=== PATIENT | male | born 1975 | race Hispanic/Latino ===

== ENCOUNTER 2017-12-16 00:30 | Observation (INO) | payer OTHER ==
[2017-12-16] VITALS (7 sets, daily range): BP systolic 110–143; BP diastolic 71–91
[~2017-12-16] VITALS: Ht 182.9 cm; Wt 93.6 kg
[2017-12-16] MEDS ORDERED: ASPIRIN 81 MG CHEW TAB PO ONE (00:45)
[2017-12-16] MEDS ORDERED: PANTOPRAZOLE 40 MG 10ML VIAL IV STA (00:53)
[2017-12-16 00:57] LABS: BASOPHILS % 0.3 % (0.0-1.0); EOSINOPHILS # (AUTO) 0.1 (0.0-0.4); EOSINOPHILS % 0.8 % (0.0-6.0); HEMATOCRIT 45.7 % (38.2-49.6); HEMOGLOBIN 15.8 g/dL (14.0-18.0); LYMPHOCYTES # (AUTO) 3.3 (1.0-3.2); MEAN CORPUSCULAR HEMOGLOBIN 31.3 pg (28-32); MEAN CORPUSCULAR HGB CONC 34.6 g/dL (31-35); MEAN CORPUSCULAR VOLUME 90.5 fL (81-99); MONOCYTES # (AUTO) 0.7 (0.2-0.8); MONOCYTES % 8.2 % (4.4-11.3); NEUTROPHILS % 49.6 % (38.7-80.0); PLATELET COUNT 231 x10e3/uL (140-360); RED BLOOD COUNT 5.05 x10e6/uL (4.3-5.7); RED CELL DISTRIBUTION WIDTH 12.9 % (11.7-14.4)
[2017-12-16 01:00] LABS: AMPHETAMINES SCREEN,URINE NEGATIVE (NEGATIVE); BENZODIAZEPINES SCREEN,URINE NEGATIVE (NEGATIVE); PHENCYCLIDINE SCREEN,URINE NEGATIVE (NEGATIVE)
[2017-12-16 01:07] LABS: CLARITY,URINE CLEAR (CLEAR); COLOR,URINE YELLOW (YELLOW); LEUKOCYTE ESTERASE ,URINE NEGATIVE (NEGATIVE); NITRITE,URINE NEGATIVE (NEGATIVE); PROTEIN,URINE DIPSTICK NEGATIVE (NEGATIVE)
[2017-12-16 01:08] LABS: BILIRUBIN,URINE NEGATIVE (NEGATIVE); KETONES,URINE NEGATIVE (NEGATIVE); MUCUS,URINE FEW (RARE); RBC,URINE 0-5 /HPF (0-5); URINE UROBILINOGEN 4 mg/dL (0.2 - 1); WBC,URINE (MAN) 0-5 /HPF (0-5)
[2017-12-16 01:12] LABS: INR 0.91; PROTHROMBIN TIME 13.1 seconds (11.9-14.5)
[2017-12-16 01:13] LABS: PARTIAL THROMBOPLASTIN TIME 27.2 seconds (23.8-35.5)
[2017-12-16 01:21] LABS: ALANINE AMINOTRANSFERASE 44 IU/L (0-55); ALBUMIN 4.1 g/dL (3.5-5.0); ALBUMIN/GLOBULIN RATIO 1.3 (0.8-2.0); ALKALINE PHOSPHATASE 85 IU/L (40-150); BLOOD UREA NITROGEN 17 mg/dL (7-26); BUN/CREATININE RATIO 16 (6-25); CALCIUM 9.7 mg/dL (8.4-10.2); CARBON DIOXIDE 24 mmol/L (22-29); CHLORIDE 102 mmol/L (98-107); CREATINE KINASE 150 IU/L (30-200); CREATININE, SERUM 1.07 mg/dL (0.72-1.25); EST GLOMERULAR FILTRATION RATE > 60 ML/MIN (60-); GLUCOSE 118 mg/dL (74-118); SODIUM 139 mmol/L (136-145)
[2017-12-16 01:25] LABS: CREATINE KINASE MB < 1.00 ng/mL (0-4.3)
[2017-12-16 01:34] LABS: AMYLASE 34 U/L (25-125); LIPASE 16 U/L (8-78)
--- NOTE | 2017-12-16 01:34 | Diagnostic Imaging Report ---
CHEST SINGLE (PORTABLE), 12/16/2017 12:37 AM Technique: CHEST SINGLE (PORTABLE) Comparison: None available. Clinical history: \S\CHEST PAIN \[id number] \S\0107 \S\Y Findings: See Impression Impression: Limited by portable technique and soft tissue attenuation. 1. Prominent cardiac silhouette, accentuated by portable technique. 2. Hazy opacity over the peripheral left lower lung could be artifactual related to summation shadow and technique. Recommend follow-up upright PA and lateral. 3. No effusion or pneumothorax. Signed by: Dr Celia Ellis MD on 12/16/2017 1:30 AM
[2017-12-16] MEDS ORDERED: ONDANSETRON HCL INJ 2 MG/ML VIAL IV PRN (02:15)
[2017-12-16] MEDS ORDERED: MORPHINE SULFATE 2 MG/ML SYR IV PRN (02:15)
[2017-12-16] MEDS ORDERED: SODIUM CHLORIDE FLUSH 10 ML SYR INJ PRN (02:15)
[2017-12-16] MEDS: FAMOTIDINE 20 MG/2 ML VIAL IV SCH ×2 (02:25→15:18)
[2017-12-16] MEDS ORDERED: ASPIRIN 81 MG ENTERIC COATED PO SCH (09:00)
[2017-12-16 09:12] LABS: CREATINE KINASE MB 0.5 ng/mL (0-5.0)
--- NOTE | 2017-12-16 09:53 | History and Physical ---
PCP: Dr. Rossi Blanca. DAM WORKER: Dr. Asad Snider. CHIEF COMPLAINT: Chest pressure which woke the patient up. HISTORY OF PRESENT ILLNESS: Patient is a 42-year-old male, came into the hospital because of chest pain. The patient has chest pain and chest pressure. The chest pressure was severe that woke the patient up. It is not consistent with reflux. The patient is stable. He is a smoker for over 20 years. He does have family history of coronary artery disease, hypertension and diabetes. The patient is otherwise stable at this time. PAST MEDICAL HISTORY: Noncontributory. PAST SURGICAL HISTORY: None. SOCIAL HISTORY: The patient is a smoker 1 to 2 packs early on, but now approximately a pack per day. Over the past 20 years, the patient has been a smoker. He works in a warehouse. Social drinker. No recreational drug use. ALLERGIES: NO KNOWN ALLERGIES. HOME MEDICATIONS: None. REVIEW OF SYSTEMS: Chest pressure and chest pain. PHYSICAL EXAMINATION VITAL SIGNS: Temperature is 97. Blood pressure 134/79. Pulse rate 75. Respirations 18. GENERAL: Patient is in no acute distress. HEENT: Normocephalic, atraumatic. Sclerae anicteric. NECK: Supple grossly. PULMONARY: Clear. CARDIOVASCULAR: Regular rate and rhythm. ABDOMEN: Soft, unremarkable. EXTREMITIES: No cyanosis or edema. NEUROLOGIC: No gross focal deficit. LABORATORY: Sodium is 139, potassium 4, chloride 102, bicarb 24, BUN 17, creatinine 1.0, glucose 180. WBC 7.9, hemoglobin 15.8, hematocrit 45.7 and platelets 231,000. IMPRESSION 1. Chest pain with multiple risk factors, smoker, family history, being a male. 2. Slightly elevated blood sugar. PLAN: Consultation with Dr. Asad Snider. Echocardiogram. Lipid panel. Baby aspirin. We will continue to monitor the patient on telemetry. EKG is unremarkable. Job#: [id number] GE cc:ROSSI BLANCA MD
--- NOTE | 2017-12-16 11:53 | Consultation ---
DATE OF CONSULTATION: December 16, 2017 CARDIOLOGY CONSULTATION REASON FOR CONSULTATION: Chest pain. HISTORY OF PRESENT ILLNESS: Mr. Monahan is a 42-year-old gentleman with no past medical history outside of intermittent headaches and chronic NSAID use for intermittent headaches as well as lumbar spine DJD. 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 His bad habits includes smoking half a pack per day for many years. Patient reports that he had a late dinner last night and awoke at around 11 p.m. with a pressure sensation across his chest, moderate in nature without any radiations, without any associated nausea, vomiting or diaphoresis. Has some mild shortness of breath with this episode. He reports that his pain continued throughout the night and reports very low level discomfort almost completely gone at the present time. The pain is not positional. Does not feel it is related to activity. He has never had a discomfort like this before. EKG reveals normal sinus rhythm and complete right bundle branch block and troponin 1 from baseline of 0.05 to 0.002 with most recent CK-MB of 0.5 and CK of 126. PAST MEDICAL HISTORY: None. PAST SURGICAL HISTORY: None. FAMILY HISTORY: Mother and father alive, has hypertension and diabetes. No family history of coronary disease. SOCIAL HISTORY: Half pack per day smoker. Denies any alcohol or illicit drug use. ALLERGIES: NO KNOWN DRUG ALLERGIES. CURRENT MEDICATIONS: Include over the counter Advil p.r.n. for headaches. REVIEW OF SYSTEMS GENERAL: Denies any fevers, chills or any weight changes. HEENT: No current headaches, visual complaints, sore throat or stuffy nose. RESPIRATORY: Denies any pleuritic chest pain. No cough. CARDIOVASCULAR: As per HPI. Denies any palpitation, syncope or near syncope. GI: Denies any abdominal pain, nausea, vomiting, bright red blood per rectum, melena, or hematemesis. : Denies any dysuria, pyuria, change in urinary frequency. SKIN: No rashes. MUSCULOSKELETAL: Has chronic lower back pain from lifting. No typical claudication symptoms. No swelling. HEMATOLOGY: No easy bruising or bleeding. ID: No known infectious issues. NEUROLOGIC: Denies any focal weakness, numbness, tingling, seizures, headache, TIA or stroke. Remainder of the review of systems, negative, otherwise mentioned. PHYSICAL EXAMINATION VITAL SIGNS: Height of 72 inches, weight of 206 pounds. BMI is 28. GENERAL: This is a well nourished, well developed gentleman who is currently in no apparent distress. HEENT: Normocephalic and atraumatic. Pupils equal, round, and reactive to light. Extraocular movements are intact. Oropharynx is clear. NECK: No elevation of jugular venous pulsation. No carotid bruit. CARDIOVASCULAR: Regular rate and rhythm. Normal S1 and S2. Soft 1/6 systolic murmur at the left lower sternal border. LUNGS: Largely clear to auscultation bilaterally. ABDOMEN: Soft, nontender, and nondistended. Normoactive bowel sounds. No hepatosplenomegaly. BACK: No costovertebral angle tenderness. EXTREMITIES: Warm with 2+ bilateral radial pulses, 2+ bilateral femoral pulses, and 1 to 2+ pedal pulses. NEUROLOGIC: Cranial nerves II through XII are intact. Strength is 5/5 and grossly nonfocal. PSYCH: Normal fluent speech. Appropriate affect. No anxiety or delusions. LABORATORY DATA: White count 7.97, hemoglobin 15.8, hematocrit 45.7, and platelets of 231. Sodium 139, potassium 4.0, chloride 102, bicarb 24, BUN 17, creatinine 1.07, glucose of 118, and calcium of 9.7. AST 22, ALT 44, alk phos 85, total protein 7.2, and albumin of 4.1. BNP is less than 5. Troponin went from less than 0.05 to 0.002. MB went from less than 1 to 0.5 and CK went from 150 to 126. Amylase is 34 and lipase of 16. INR is 0.91. UA is negative. Urine drug screen is negative. EKG reveals normal sinus rhythm, incomplete right bundle branch block. No ST-T wave changes. Concern for ischemia. Chest x-ray reveals hazy opacity over the left lower lung, could be artifactual. No effusions or pneumothorax. DIAGNOSES 1. Chest pain with mixed features. 2. Smoker. 3. Intermittent headache. 4. Chronic nonsteroidal anti-inflammatory drug use. PLAN/RECOMMENDATIONS 1. From a cardiovascular standpoint, patient's chest pain symptoms are mixed with typical and atypical features with differential diagnosis being GI pain related to perhaps gastritis, esophagitis, versus musculoskeletal as well in light of his activity level. 2. Offered various management options including hearth catheterization, stress test or observation and patient refuses to accept the risk of a heart catheterization and is agreeable for stress test. 3. We will check echocardiogram to evaluate his left ventricular function. 4. We will pursue with treadmill stress test. Limitations including sensitivity and specificity explained to the patient, and entire family and they are willing to accept the results of that. 5. Primary team has ordered the CAT scan. We will followup on those results. 6. We will continue to monitor this patient. Thank you for this referral. Job#: [id number] KARLIE
--- NOTE | 2017-12-16 12:52 | Cardiology Report ---
DATE OF STUDY: December 16, 2017 CARDIAC STRESS TEST TECHNICAL DETAILS: The protocol is a Sharif with 85% ( target heart rate ) at 152 per minute. RESULTS 1. Patient exercised for a total of 10 minutes. 2. Heart rate increased from 81 to 163 per minute. 3. Blood pressure increased from 120/66 to 153/94. 4. No chest pain. 5. No EKG changes. IMPRESSION: Good exercise tolerance. Negative cardiac stress test. Limitations of this stress test are explained and discussed. Job#: [id number] LARRY ZHANG
--- NOTE | 2017-12-16 13:36 | Diagnostic Imaging Report ---
EXAMINATION: CT scan of the chest with contrast. TECHNIQUE: Helical CT images of the chest were performed from the lung apices to the level of the adrenal glands after the intravenous administration of 100 cc of Isovue 300. Coronal and sagittal reformatted images were obtained. COMPARISON: None. CLINICAL HISTORY:Chest pain DISCUSSION: LINES/TUBES: None. LUNGS AND AIRWAYS: The lungs are clear. No pulmonary nodules, masses or consolidation. The airways are normal, without endobronchial lesions. PLEURA: No pneumothorax or pleural effusions. HEART AND MEDIASTINUM: The thyroid gland is normal. The heart and pericardium are within normal limits. LYMPH NODES: There is no mediastinal, hilar or axillary lymphadenopathy. ABDOMEN: Hepatic steatosis, otherwise unremarkable. BONES AND SOFT TISSUES: No acute bony abnormalities. IMPRESSION: No acute CT finding. No concerning nodules. Signed by: Dr. Loy Reinoso M.D. on 12/16/2017 1:33 PM
[2017-12-16] MEDS ORDERED: SODIUM CHLORIDE 0.9% 50ML 50 ML ONE (16:01)
[2017-12-16] MEDS ORDERED: IOPAMIDOL 370 MG/ML 200 ML INFUS..BTL INJ ONE (16:01)
--- NOTE | 2017-12-16 16:29 | Discharge Summary ---
CONSULTANTS: Dr. Asad Snider. FINAL DIAGNOSIS: Chest pressure with chest pain with a normal stress test. The patient had exercise stress test for a total of 10 minutes. Heart rate increased from 81 to 163 beats per minute. Blood pressure increased from 120/66 to 153/94. No chest pain, no EKG changes. Impression is good exercise tolerance and good negative cardiac stress test. The patient is stable. No further symptoms. CT of the chest with contrast showed no acute findings. There are no concerning findings on CTA of the chest. The patient is stable. Discharged home today. Patient will not need any medication at this time. He may follow up with his family doctor, Dr. Sukhi Brandon, for any further evaluation of his chest pressure. Job#: [id number] HELENA
== END 2017-12-16 18:28 | disposition home or self-care (01) ==
LOC: ER 00:30 → ERHOLD 02:18 → MED/SURG2 03:21
PROVIDERS: ADMIT Internal Medicine; ATTEND Internal Medicine
DX: R07.89 Other chest pain (principal); F17.210 Nicotine dependence, cigarettes, uncomplicated; Z82.49 Family history of ischemic heart disease and other diseases of the circulatory system; Z83.3 Family history of diabetes mellitus; R51 Headache; Z79.1 Long term (current) use of non-steroidal anti-inflammatories (NSAID)
CPT/HCPCS: 36415; 71045; 71260; 80053; 80061; 80307; 81001; 82150; 82550; 82553; 82948; 83690; 83880; 84484; 85025; 85610; 85730; 93005; 93017; 96374; 99284; G0378; Q9967